=== PATIENT | male | born 1955 | race Caucasian/White ===

== ENCOUNTER 2024-02-06 12:28 | Day surgery (SDC) | payer MEDICARE, BC ==
[2024-02-05 15:34] LABS: BASOPHILS # (AUTO) 0.1 X10'3 (0-0.2); BASOPHILS % (AUTO) 0.7 % (0-1); EOSINOPHILS # (AUTO) 0.2 X10'3 (0-0.9); HEMATOCRIT 47.3 % (42.0-52.0); HEMOGLOBIN 15.5 g/dl (14.0-17.9); LYMPHOCYTES # (AUTO) 1.7 X10'3 (1.1-4.8); LYMPHOCYTES % (AUTO) 20.7 % (21-51); MEAN CORPUSCULAR HEMOGLOBIN 29.6 PG (27.0-31.0); MEAN CORPUSCULAR HGB CONC 32.8 g/dL (33.0-36.5); MEAN CORPUSCULAR VOLUME 90.3 FL (78-98); MEAN PLATELET VOLUME 8.5 FL (7.4-10.4); MONOCYTES # (AUTO) 0.7 X10'3 (0-0.9); MONOCYTES % (AUTO) 8.6 % (2-12); NEUTROPHILS # (AUTO) 5.4 X10'3 (1.8-7.7); PLATELET COUNT 241 X10'3 (140-440); RED BLOOD COUNT 5.24 X10'6 (4.70-6.10); RED CELL DISTRIBUTION WIDTH 14.7 % (11.5-14.5)
[2024-02-05 15:43] LABS: APTT 28 SECONDS (22-32); PROTHROMBIN TIME 10.8 SECONDS (9.0-12.0)
[2024-02-05 15:50] LABS: ALBUMIN 3.7 G/DL (3.4-5.0); ANION GAP 10 (8-16); BLOOD UREA NITROGEN 17 MG/DL (7-18); BUN/CREATININE RATIO 15.2 (10.0-20.0); CALCIUM 8.8 MG/DL (8.5-10.1); CHLORIDE 108 MMOL/L (99-107); CHOL/HDL RATIO 3.3 (0.00-4.99); CHOLESTEROL 129 MG/DL (0-200); CREATININE 1.12 MG/DL (0.60-1.10); GLUCOSE 113 MG/DL (70-104); HDL CHOLESTEROL 39 MG/DL (35-60); LDL CHOLESTEROL 71 MG/DL (50-100); POTASSIUM 4.4 MMOL/L (3.5-5.1); SODIUM 144 MMOL/L (135-145); TOTAL CARBON DIOXIDE 26.3 MMOL/L (24-32); TRIGLYCERIDES 117 MG/DL (20-135); eGFR 65 ML/MIN
[2024-02-06] VITALS (9 sets, daily range): BP systolic 99–112; BP diastolic 52–69; PULSE 60–62; RESP 10–16; TEMP 98.1; O2SAT 91–94
[~2024-02-06] VITALS: Ht 172.7 cm; Wt 97.4 kg
[2024-02-06] MEDS ORDERED: LORazepam 0.5 MG tablet PO PRN (12:45)
[2024-02-06] MEDS ORDERED: diphenhydrAMINE 25mg capsule PO PRN (12:45)
[2024-02-06] MEDS ORDERED: normal saline 1,000 ML IV SCH (12:45)
[2024-02-06] MEDS ORDERED: LIDOcaine 1% (10mg/ml) 2ml vial ONE (14:35)
[2024-02-06] MEDS ORDERED: midazolam 1 mg/ML 2ml injection ONE ×2 (14:35→15:12)
[2024-02-06] MEDS ORDERED: heparin 1,000unit/ml 10ml vial 10 ML ONE (14:35)
[2024-02-06] MEDS ORDERED: verapamil 2.5 mg/ml inj IV ONE (14:35)
[2024-02-06] MEDS ORDERED: fentaNYL/PF 50MCG/1 ML 2ML syringe ONE (14:35)
[2024-02-06] MEDS ORDERED: iohexol 350MG/ML 100ml bottle IV ONE ×2 (14:36→15:35)
[2024-02-06] MEDS ORDERED: nitroGLYCERIN 500mcg/5mL D5W 5 ML IV ONE (14:38)
[2024-02-06] MEDS ORDERED: CHOL500050 PO (15:06)
[2024-02-06] MEDS ORDERED: ATOR20TA PO (15:06)
[2024-02-06] MEDS ORDERED: ALBU18HF2 INH (15:06)
[2024-02-06] MEDS ORDERED: SACU1TAB7 PO (15:06)
[2024-02-06] MEDS ORDERED: TIOT18CA3 INH (15:06)
[2024-02-06] MEDS ORDERED: SPIR25TA5 PO (15:06)
[2024-02-06] MEDS ORDERED: METO200T37 PO (15:06)
[2024-02-06] MEDS ORDERED: BUPR-297 PO (15:06)
[2024-02-06] MEDS ORDERED: aspirin 325mg tablet ONE (15:50)
[2024-02-06] MEDS ORDERED: clopidogrel 300mg tablet ONE (15:50)
== END 2024-02-06 18:50 | disposition home or self-care (01) ==
LOC: SSTAY O 12:28
PROVIDERS: ATTEND Student in an Organized Health Care Education/Training Program
DX: I25.10 Atherosclerotic heart disease of native coronary artery without angina pectoris (principal); I11.0 Hypertensive heart disease with heart failure; I50.22 Chronic systolic (congestive) heart failure; I42.9 Cardiomyopathy, unspecified; Z79.899 Other long term (current) drug therapy; Z79.01 Long term (current) use of anticoagulants
CPT/HCPCS: 36415; 80048; 80061; 85025; 85610; 85730; 93005; 93460; 99152; 99153; A6258; A6402; C1725; C1751; C1769; C1874; C1894; C9600; J1644; J2001; J2250; J3010; J3490; J7030; Q9967; Z7610